=== PATIENT | female | born 1970 | race Caucasian/White ===

== ENCOUNTER 2018-07-29 15:12 | Emergency (ER) | payer BC ==
[2018-07-29] MEDS ORDERED: Tetan/Diph/Pertus SYR(Tdap)* 0.5 ML SYR(BOOSTRIX) use SYR IM ONE (15:41)
[2018-07-29] MEDS ORDERED: Lidocaine 1%* 5 ML VIAL INJ ONE (15:41)
--- NOTE | 2018-07-29 15:41 | ED ---
Laceration/Wound HPI - HPI Summary HPI Summary: Patient is a 47-year-old female who presents emergency department for facial laceration after a fall that occurred just prior to arrival. Patient is visiting the area for [facility]. Patient states she was at an event and was carrying 2 bags when she accidentally tripped over something on the floor and struck right-sided face-off onto the floor. Patient denies loss of consciousness. Patient denies drinking any alcohol today. Patient denies headache, vision changes, or any other injuries. Patient denies past medical history. She is not anticoagulated. She is unaware of her last tetanus immunization. Symptoms are mild in severity. Touching affected area makes symptoms worse. Rest makes symptoms better. - History of Current Complaint Stated Complaint: "FALL PER EMS" Time Seen by Provider: 07/29/18 15:29 Hx Obtained From: Patient Pain Intensity: 1 - Allergy/Home Medications Allergies/Adverse Reactions: Allergies Allergy/AdvReac Type Severity Reaction Status Date / Time ciprofloxacin [From Cipro] Allergy Rash Verified 07/29/18 15:20 Home Medications: Home Medications Estradiol VAG CM (NF) 1 applic VAGINAL BID PRN 07/29/18 [History Confirmed 07/29] PMH/Surg Hx/FS Hx/Imm Hx Previously Healthy: Yes Infectious Disease History: No Infectious Disease History: Denies: Traveled Outside the [place] in Last 30 Days - Family History Known Family History: Positive: Non-Contributory - Social History Occupation: Employed Full-time Lives: With Family Alcohol Use: None Substance Use Type: Reports: None Smoking Status (MU): Never Smoked Tobacco Review of Systems Eyes: Negative Negative: Photophobia, Blurred Vision ENT: Negative Negative: Epistaxis Musculoskeletal: Negative Positive: Other - facial laceration Neurological: Negative Negative: Headache, Weakness, Syncope All Other Systems Reviewed And Are Negative: Yes Physical Exam Triage Information Reviewed: Yes Vital Signs On Initial Exam: Initial Vitals Temp Pulse Resp BP Pulse Ox 98.2 F 82 16 177/93 97 07/29/18 15:16 07/29/18 15:16 07/29/18 15:16 07/29/18 15:16 07/29/18 15:16 Vital Signs Reviewed: Yes Appearance: Positive: Well-Appearing - Pt. sitting up in bed in NAD. Skin: Positive: Warm, Dry Head/Face: Positive: Other - 4 cm linear laceration through right eye brow. Superficial abrasion to inferior orbital region with mild ecchymosis. No bony facial tenderness on palpation. Eyes: Positive: Normal, EOMI - without pain or entrapment., ESTELA Neck: Positive: Supple, Nontender Musculoskeletal: Positive: Normal, Strength/ROM Intact Neurological: Positive: Normal, Alert, Oriented to Person Place, Time, CN Intact II-III Psychiatric: Positive: Affect/Mood Appropriate Procedures - Laceration/Wound Repair 1 Location: face Description: Linear Anesthesia: Local, 1.0%, Lido Length, Depth and Shape: 4cm linear Betadine Prep?: No - hibiclens Irrigated w/ Saline (ccs): 250 Laceration/Wound Explored: clean Closure: Single Layer Suture Type: Nylon Number of Sutures: 4 Layer Closure?: No Sterile Dressing Applied?: Yes Diagnostics - Vital Signs Vital Signs Temp Pulse Resp BP Pulse Ox 07/29/18 15:16 98.2 F 82 16 177/93 97 - Laboratory Lab Statement: Any lab studies that have been ordered have been reviewed, and results considered in the medical decision making process. Laceration Repair Course/Dx - Course Course Of Treatment: Patient presenting with facial laceration and contusion. She has no bony tenderness or ocular injury. Tetanus was updated. Wound was cleaned and repaired as noted above. Suture removal in 5 days. Keep wound clean and dry. Tylenol or Motrin for pain as directed. Ice and elevate intermittently. We'll return to the ER symptoms change or worsen. Patient understands and agrees with plan. - Differential Dx Differental Diagnoses: Foreign Body, Fracture, Hematoma, Laceration - Clinical Impression Provider Diagnoses: Facial laceration, Facial contusion Discharge - Sign-Out/Discharge Documenting (check all that apply): Patient Departure Patient Received Moderate/Deep Sedation with Procedure: No - Discharge Plan Condition: Good Disposition: HOME Patient Education Materials: Care For Your Stitches (ED), Facial Laceration (ED ) Referrals: [facility] [Outside] Additional Instructions: Suture removal in 5 days Four sutures were placed Keep wound clean and dry Ice intermittently Tylenol or Motrin for pain as directed Sleep with head elevated to help reduce bruising and swelling Return to ER if symptoms change or worsen - Billing Disposition and Condition Condition: GOOD Disposition: Home
[2018-07-29] MEDS ORDERED: Lidocaine 1%* 5 ML VIAL ONE (16:07)
[2018-07-29 16:33] VITALS: BP 156/110
== END 2018-07-29 16:32 | disposition home or self-care (01) ==
LOC: ED 15:12
DX: S01.111A Laceration without foreign body of right eyelid and periocular area, initial encounter (principal); S05.11XA Contusion of eyeball and orbital tissues, right eye, initial encounter; W01.0XXA Fall on same level from slipping, tripping and stumbling without subsequent striking against object, initial encounter; Y92.9 Unspecified place or not applicable; Z23 Encounter for immunization; Z88.1 Allergy status to other antibiotic agents
CPT/HCPCS: 12013; 90471; 90715; 99282